=== PATIENT | male | born 1975 | race Hispanic/Latino ===

== ENCOUNTER 2017-09-04 12:46 | Emergency (ER) | payer OTHER ==
[~2017-09-04] VITALS: Ht 177.8 cm; Wt 83.9 kg
[2017-09-04 13:13] VITALS: BP 148/92
[2017-09-04 14:24] LABS: ABSOLUTE BASOPHIL COUNT 0 /CUMM (0.0-0.2); ABSOLUTE EOSINOPHIL COUNT 0.1 /CUMM (0.0-0.7); ABSOLUTE GRANULOCYTE CT 8.7 /CUMM (1.4-6.5); ABSOLUTE LYMPH COUNT 1.3 /CUMM (1.2-3.4); ABSOLUTE MONOCYTE COUNT 0.6 /CUMM (0.10-0.60); BASOPHIL % 0.2 % (0.0-2.0); EOSINOPHIL % 1.1 % (0-5); GRANULOCYTE % 81.1 % (42.2-75.2); HEMATOCRIT 43.2 % (42-52); MEAN CORPUSCULAR HGB 30.4 PG (27.0-31.0); MEAN CORPUSCULAR VOLUME 89.5 FL (80.0-94.0); MEAN PLATELET VOLUME 8.3 FL (7.4-10.4); PLATELET COUNT 327 /CUMM (130-400); RBC DISTRIBUTION WIDTH 13.3 % (11.5-14.5); RED BLOOD CELL CT 4.82 /CUMM (4.70-6.10); WHITE BLOOD CELL COUNT 10.7 /CUMM (4.8-10.8)
--- NOTE | 2017-09-04 17:33 | ED GI/GU/ABDOMINAL COMPLAINT ---
History of Present Illness General Chief Complaint: Abdominal Pain/Flank Pain Stated Complaint: ABDOMINAL PAIN +N X 24HRS Source: patient, old records Exam Limitations: no limitations Vital Signs & Intake/Output Vital Signs & Intake/Output Vital Signs Date Time Temp Pulse Resp B/P B/P Pulse O2 O2 Flow FiO2 Mean Ox Delivery Rate 09/04 1635 98.3 81 16 98 Room Air Room Air 09/04 1313 98.7 78 20 148/92 97 Room Air Allergies Coded Allergies: No Known Allergies (09/04/17) Reconcile Medications Pantoprazole Sodium (Protonix) 40 MG TABLET. 1 TAB PO DAILY gastritis Triage Note: RIGHT MID ABDOMINAL PAIN TODAY WITH NAUSEA. NAUSEA STARTED YESTERDAY AT 1500. + DIARRHEA YESTERDAY. + + CHILLS TODAY AND YESTERDAY. HAS BEEN TAKING TYLENOL Triage Nurses Notes Reviewed? yes Onset: Abrupt Duration: day(s): (2), constant Timing: recent history Quality/Severity: aching, cramping Severity Numbers: 5 Location: right upper quadrant Radiation: no radiation Activities at Onset: none No Modifying Factors: none Associated Symptoms: denies HPI: 42 year old male active smoker no pmhx presents c/o r mid abd pain since last night. pt reports he felt nauseous but no vomiting. contrary to triage note pt denies diarrhea. attempted to ahve a bowel movement to improve sx without success. no history of similar sx in the past. no cp, no sob. nothing makes pain worse or better. no radiation of pain. no fever, chills, sick contacts. has taken tylenol without improvement. no history of abd surgeries. denies recent etoh use. (Jonny Adams) Past History Travel History Traveled to [place] past 21 day No Medical History Any Pertinent Medical History? none Neurological: NONE Cardiovascular: NONE Respiratory: NONE Gastrointestinal: NONE Hepatic: NONE Renal: NONE Musculoskeletal: NONE Psychiatric: NONE Endocrine: NONE Surgical History Surgical History: none Psychosocial History What is your primary language Hebrew Tobacco Use: Current Daily Use Daily Tobacco Use Amount/Type: => 5 Cigarettes daily ETOH Use: occasional use Illicit Drug Use: denies illicit drug use Family History Hx Contributory? No (Jonny Adams) Review of Systems Review of Systems Constitutional: Reports: see HPI. All Other Systems: Reviewed and Negative (Jonny Adams) Physical Exam Physical Exam General Appearance: well developed/nourished, no apparent distress, alert, awake Gastrointestinal: ruq tenderness, neg murphys Comments: Well-developed well-nourished person in no acute distress HEENT: Normal EENT exam; PERRL, EOMI, HEAD is atraumatic. moist mucous membranes. Neck: Supple, normal range of motion Back: Nontender, no CVA tenderness. Full range of motion Cardiovascular: Regular rate and rhythms no murmurs rub Respiratory: Chest nontender.There were no bony deformities, no asymmetry. No respiratory distress. Patient speaking in full complete sentences. Breath sounds clear to auscultation bilaterally: NO W/R/R Abdomen: Soft, ruq tenderness, neg murphys, nondistended, no appreciable organomegaly. Normal bowel sounds. No rebound/guarding, Extremity: No edema, full range of motion of extremities Neuro: Alert oriented x3, motor sensory normal,. There were no obvious focal neurologic abnormalities. Skin: No appreciable rash on exposed skin, skin is warm and dry. Psych: Mood and affect is normal, memory and judgment is normal. Core Measures ACS in differential dx? No Sepsis Present: No Sepsis Focused Exam Completed? No (Honey MUNGUIA,Jonny) Progress Differential Diagnosis: appendicitis, biliary colic, bowel obstruction, colon cancer, diverticulitis, gastritis, hepatitis, hernia, inflamm bowel dis, peptic ulcer, PUD/GERD, perforated viscous, SBO Plan of Care: Orders Procedure Date/time Status COMPREHENSIVE METABOLIC PANEL 09/04 1347 Complete CBC WITHOUT DIFFERENTIAL 09/04 1347 Complete Laboratory Tests 09/04/17 1636: Urine Color Cancelled, Urine Clarity Cancelled, Urine pH Cancelled, Ur Specific [place] Cancelled, Urine Protein Cancelled, Urine Ketones Cancelled, Urine Nitrite Cancelled, Urine Bilirubin Cancelled, Urine Urobilinogen Cancelled, Ur Leukocyte Esterase Cancelled, Ur Microscopic Cancelled, Urine Hemoglobin Cancelled, Urine Glucose Cancelled 09/04/17 1414: Anion Gap 13, Estimated GFR > 60, BUN/Creatinine Ratio 12.5, Glucose 101 H, Calcium 9.9, Total Bilirubin 1.5 H, AST 62 H, ALT 65, Alkaline Phosphatase 83, Total Protein 7.9, Albumin 4.6, Globulin 3.3, Albumin/Globulin Ratio 1.4, CBC w Diff NO MAN DIFF REQ, RBC 4.82, MCV 89.5, MCH 30.4, MCHC 34.0, RDW 13.3, MPV 8.3 , Gran % 81.1 H, Lymphocytes % 11.7 L, Monocytes % 5.9, Eosinophils % 1.1, Basophils % 0.2, Absolute Granulocytes 8.7 H, Absolute Lymphocytes 1.3, Absolute Monocytes 0.6, Absolute Eosinophils 0.1, Absolute Basophils 0 labs ordered from triage. 174 I saw the pt at this time, us ordered, he denies pain at this time, nontoxic appearing at thsit nicole Repeat evaluation discussed with patient his ultrasound findings he remains asymptomatic he's had no vomiting diarrhea here is tolerating by mouth challenge advise close follow up with his primary care physician Silvestre of old prescription for Protonix. He feels comfortable to plan cleared for discharge Diagnostic Imaging: Viewed by Me: Ultrasound. Discussed w/RAD: Ultrasound. Radiology Impression: PATIENT: KIERA CLARK PRESENT AGE: 42 PATIENT ACCOUNT NO: [id number] : 75 LOCATION: [facility] ORDERING PHYSICIAN: Jonny MUNGUIA SERVICE DATE: 09/04/17 EXAM TYPE: US - US- LIMITED ABDOMEN EXAMINATION: US ABDOMEN LIMITED CLINICAL INFORMATION: Right upper abdominal pain with nausea. COMPARISON: None TECHNIQUE: Real-time imaging of the right upper quadrant abdominal viscera. FINDINGS: PANCREAS: Normal. LIVER : Normal. The liver demonstrates normal size, contour and echogenicity. No focal lesion or intrahepatic biliary duct dilatation. GALLBLADDER: Normal. The gallbladder is physiologically distended without evidence of stones, sludge, polyps, wall thickening or pericholecystic fluid. COMMON BILE DUCT: Normal in caliber measuring 0.2 cm in diameter. RIGHT KIDNEY: Normal. No hydronephrosis. No renal calculi or focal parenchymal lesions. The kidney measures 11.6 cm in maximum dimension. FREE FLUID: None. IMPRESSION: No acute process. Normal study. DICTATED BY: Jonathan Jolley MD DATE/TIME DICTATED:09/04/171852 RUBBER AND POUNDER:SAVITA DATE/TIME TRANSCRIBED:09/04/171852 CONFIDENTIAL, DO NOT COPY WITHOUT APPROPRIATE AUTHORIZATION. <Electronically signed in Other Vendor System> SIGNED BY: Jonathan Jolley MD 09/04/171856 Initial ED EKG: none (Honey MUNGUIA,Jonny) Departure Departure Time of Disposition: 1904 Disposition: HOME OR SELF CARE Condition: Stable Clinical Impression Primary Impression: Abdominal pain Referrals: Patient Has No Primary Care Dr (PCP/Family) Additional Instructions: protonix as directed. bland diet, clear liquid diet, advance as tolerated. follow up with your pmd this week. return with any concerns Departure Forms: Customer Survey General Discharge Information Prescriptions: Current Visit Scripts Pantoprazole Sodium (Protonix) 1 TAB PO DAILY #14 TAB (Jonny Adams) PA/BOAT ENGINE MECHANIC Co-Sign Statement Statement: ED Attending supervision documentation- [] I saw and evaluated the patient. I have also reviewed all the pertinent lab results and diagnostic results. I agree with the findings and the plan of care as documented in the PA's/BOAT ENGINE MECHANIC's documentation. [X] I have reviewed the ED Record and agree with the PA's/BOAT ENGINE MECHANIC's documentation. [] Additions or exceptions (if any) to the PAs/BOAT ENGINE MECHANIC's note and plan are summarized below: [] (Maria Alejandra HERNANDEZ,Jonathan Castellanos)
--- NOTE | 2017-09-04 18:57 | ULTRASOUND REPORT ---
EXAMINATION: US ABDOMEN LIMITED CLINICAL INFORMATION: Right upper abdominal pain with nausea. COMPARISON: None TECHNIQUE: Real-time imaging of the right upper quadrant abdominal viscera. FINDINGS: PANCREAS: Normal. LIVER: Normal. The liver demonstrates normal size, contour and echogenicity. No focal lesion or intrahepatic biliary duct dilatation. GALLBLADDER: Normal. The gallbladder is physiologically distended without evidence of stones, sludge, polyps, wall thickening or pericholecystic fluid. COMMON BILE DUCT: Normal in caliber measuring 0.2 cm in diameter. RIGHT KIDNEY: Normal. No hydronephrosis. No renal calculi or focal parenchymal lesions. The kidney measures 11.6 cm in maximum dimension. FREE FLUID: None. IMPRESSION: No acute process. Normal study.
[2017-09-04] MEDS ORDERED: PROTONIX40 M3 PO (19:10)
== END 2017-09-04 19:20 ==
LOC: ERH 12:46
PROVIDERS: Emergency Medicine
DX: R10.11 Right upper quadrant pain (principal)